=== PATIENT | female | born 1950 | race Caucasian/White ===

== ENCOUNTER 2016-08-23 22:37 | Inpatient (IN) | payer OTHER ==
[~2016-08-23] VITALS: Ht 157.5 cm; Wt 76.2 kg
[2016-08-23 22:39] VITALS: BP 183/83
--- NOTE | 2016-08-23 22:48 | NUR ---
PT TAKEN TO BED 4
[2016-08-23] MEDS ORDERED: ASPIRIN 325 MG TAB PO ONE (23:05)
[2016-08-23] MEDS ORDERED: ENALAPRILAT 2.5 MG/2 ML VIAL IVP ONE (23:05)
[2016-08-23] MEDS ORDERED: NITROGLYCERIN 2% 1 GM PKT TP ONE (23:05)
[2016-08-23] MEDS ORDERED: MORPHINE SULFATE 4 MG/ML SYR IVP ONE (23:05)
--- NOTE | 2016-08-23 23:17 | NUR ---
65Y F BIB FAMILY C/O OF CHEST PAIN X 2 DAYS. SHES BEEN COUGHING FOR PAST FEW DAYS. NO DISTRESS NOTED. BP IS HIGH AND ERMD AWARE.
[2016-08-23] MEDS ORDERED: ZESTRIL20 MG PO (23:25)
[2016-08-23] MEDS ORDERED: GLUCOPHAGE1000 MG PO (23:25)
[2016-08-23] MEDS ORDERED: MOTRIN600 MG PO (23:25)
[2016-08-23] MEDS ORDERED: ZOCOR10 MG PO (23:25)
[2016-08-23] MEDS ORDERED: REGLAN5 MG PO (23:25)
[2016-08-24] VITALS (7 sets, daily range): BP systolic 135–152; BP diastolic 68–85
--- NOTE | 2016-08-24 00:21 | NUR ---
Dr. Conklin evaluating patient at bedside.
[2016-08-24] MEDS ORDERED: hePARIN / DEXT 5% PREMIX 250 ML IV SCH ×3 (01:35→03:55)
[2016-08-24] MEDS ORDERED: HEPARIN PER PHARMACY MC PRN ×2 (01:35→02:00)
--- NOTE | 2016-08-24 01:35 | NUR ---
CALLED AND STATED "I WILL NOT ACCEPT PATIENT." ER MD LEWIS AWARE. LICENSED INSURANCE AGENT AWARE.
[2016-08-24] MEDS ORDERED: ONDANSETRON 4 MG/2 ML VIAL IVP PRN (02:00)
[2016-08-24] MEDS ORDERED: MORPHINE SULFATE 2 MG/ML SYR IVP PRN (02:00)
[2016-08-24] MEDS ORDERED: ACETAMINOPHEN 325 MG TAB PO PRN (02:00)
[2016-08-24] MEDS ORDERED: LORazepam 2 MG/ML VIAL IVP PRN (02:00)
--- NOTE | 2016-08-24 02:35 | NUR ---
Patient will be admitted to care of DR SHAH. Admited to ICU . Will go to rOOM #3. Belongings list completed. Report to CAMILA IGLESIAS.
--- NOTE | 2016-08-24 02:40 | NUR ---
RECEIVED PT TRANSFERRED VIA GURNEY FROM ER WITH DX OF C/P. PT IS AAOX4, ABLE TO FOLLOW COMMANDS AND MAKE NEEDS KNOWN. NO S/S OF SOB/DISTRESS NOTED, BREATHING EVEN AND UNLABORED, CLEAR LUNG SOUNDS, SR ON LOCKSTITCH SHOULDER JOINER, C/O CHEST PAIN DECREASED TO 3/10, TOLERABLE. ABD SOFT, ACTIVE BOWEL SOUNDS. IV ON LEFT HAND 20GA AND LEFT FOREARM 20GA, RUNNING HEPARIN DRIP AT 1350 UNITS PER HOUR, PT RECEIVED HEPARIN BOLUS 5000 UNITS AT ER PER REPORT. AFEBRILE, SKIN IS WARM AND DRY TO TOUCH, ABLE TO MOVE ALL EXTREMITIES. EXPLAINED PLAN OF CARE, FALL PRECAUTION, CALL LIGHT WITHIN REACH. WILL CONTINUE TO MONITOR.
[2016-08-24] MEDS ORDERED: PNEUMOCOCCAL VACCINE 23 MCG/0.5 ML VIAL IMVAC SCH (03:20)
--- NOTE | 2016-08-24 03:30 | NUR ---
PT IS RESTING IN BED, DENIES CHEST PAIN AT THIS TIME. VSS. FAMILY MEMBER AT BEDSIDE.
--- NOTE | 2016-08-24 04:15 | NUR ---
PHARMACY [facility] CALLED FOR HEPARIN DRIP PER PROTOCOL FOR PATIENT NON STEMI START HEPARIN DRIP 900 UNITS/H , PT WAS DRIP 1350 UNITS /H TITRATE HEPARIN DOSE PHARMACY TOLD , NOW DRIP 9 ML/H 900 UNITS/H
--- NOTE | 2016-08-24 05:00 | NUR ---
PT IS ASLEEP, NO CHANGE OF CONDITION AT THIS TIME. VSS.
--- NOTE | 2016-08-24 06:30 | NUR ---
PT C/O NAUSEA AND DIZZINESS, EDUCATED AND MEDICATED. FAMILY MEMBER AT BEDSIDE.
--- NOTE | 2016-08-24 07:10 | NUR ---
REPORT GIVEN TO HARRIS YOUNG FOR CONTINUE OF CARE. PT IS ASLEEP, VSS.
[2016-08-24] MEDS ORDERED: METOPROLOL 25 MG TAB PO SCH ×2 (07:30→21:00)
[2016-08-24] MEDS ORDERED: LISINOPRIL 20 MG TAB PO SCH (07:30)
--- NOTE | 2016-08-24 07:36 | NUR ---
IV SITES INTACT AND FLUSHING WELL
--- NOTE | 2016-08-24 07:36 | NUR ---
RECEIVED PT FROM NIGHT NURSE HARRIS JENSEN. PT AAO X4, BREATHING NORMALLY, ON ROOM AIR. LUNG SOUND ARE CLEAR TO ALL LOBES. SR ON THE MONITOR. S1 S2 HEARD, NO S/S OF ANY EDEMA NOTED. HEPARIN DRIP ONGOING AT 900 UNITS/ HOUR, BOWEL SOUNDS ACTIVE TO ALL QUADRANTS, BLADDER NON DISTENDED, ABLE TO MOVE ALL EXTREMITIES. REPOSITIONED FOR HER COMFORT, WILL MONITOR PT CLOSELY.
--- NOTE | 2016-08-24 07:50 | NUR ---
DR. CLARKE CALLED TO MAKE AN ARRANGEMENT [place] [facility] [place]
[2016-08-24] MEDS ORDERED: NACL 0.9% 1,000 ML IV SCH (08:25)
--- NOTE | 2016-08-24 08:55 | NUR ---
CARDIOLOGY WAS NOTIFIED OF SECOND TROPONIN ,WHICH IT IS HIGHER 40.361 NG/ML AND PATIENT IS STILL ON HEPARIN DRIP AT 900 UNIT/HR. ALSO WAS NOTIFIED OF PTT 45.9 SECOND (DRAWN AT 0813HR). PER ; DO NOT GIVE ANY MORE HEPARIN BOLUS,JUST KEEP HEPARIN DRIP RUNNING AT 900 UNIT/HR AND STOP IT PRIOR TO DISCHARGE TO [facility]. NURSE HECTOR WAS INFORMED.
--- NOTE | 2016-08-24 08:55 | NUR ---
ELENA NOTE RECEIVED ORDER FOR TRANSFER TO [facility] FOR ADVANCE LEVEL OF CARE FOR ANGIOGRAM. SPOKE WITH ELENA LIZAMA OF [facility] PH# [phone] TO INFORM HER AND SHE SAID THE AMB AUTH# IS [id number] AND FACILITY AUTH# [id number]. SPOKE WITH PETER OF [facility] [facility] PH# [phone] AND SHE CONFIRMED PATIENT HAS A 3:30PM SCHEDULE FOR ANGIOGRAM TODAY AND THAT PATIENT NEEDS TO BE AT THEIR [facility] AT 12:30PM. SPOKE WITH JAEL OF [facility] PH# [phone] TO SET UP PATIENT TRANSPORT. PATIENT BIZTALK ADMINISTRATOR TIME AT 11:30AM TODAY BY [facility] AMB[facility]ANCE ACLS GOING TO [facility] [facility]. ICU NURSE HECTOR Liang EXT [phone] AWARE.
[2016-08-24] MEDS ORDERED: ATORVASTATIN 20 MG TAB PO SCH (09:00)
[2016-08-24] MEDS ORDERED: NITROGLYCERIN 0.1 MG/HR PATCH TD SCH (09:00)
[2016-08-24] MEDS ORDERED: INFLUENZA VIRUS VACCINE QUAD 0.5 ML SYR IMVAC SCH (09:00)
[2016-08-24] MEDS ORDERED: METOPROLOL SUCCINATE 50 MG TABER PO SCH ×2 (09:00)
--- NOTE | 2016-08-24 09:00 | NUR ---
PT NOTE 813 RECEIVED ORDER FOR PT EVAL; Pt WAS NOT CLEARED FOR PT PER RN DUE TO CARDIAC CONCERN AND STATES THAT [place] BE [place] [facility] [place]
--- NOTE | 2016-08-24 09:03 | NUR ---
PATIENT HAS BEEN SCREENED AND CATEGORIZED MODERATE NUTRITION RISK. PATIENT WILL BE SEEN WITHIN 3-5 DAYS OF ADMISSION. 08/26/16-08/28/[address]
--- NOTE | 2016-08-24 09:25 | NUR ---
DR. SMITH AT BEDSIDE, UPDATED DR WITH PT'S CURRENT STATUS AND LABS
--- NOTE | 2016-08-24 09:26 | NUR ---
PT'S ISAI SNYDER AT BEDSIDE
--- NOTE | 2016-08-24 09:39 | NUR ---
CM NOTE INITIAL REVIEW SENT TO [facility] FAX# [phone] PH# NOVEMBER [phone]
--- NOTE | 2016-08-24 10:32 | NUR ---
CALLED [facility] TO GIVE REPORT, SPOKE WITH RAJENDRA AND STATED THAT NURSES ARE BUSY AT THIS TIME AND WILL CALL US BACK FOR REPORT.
--- NOTE | 2016-08-24 10:45 | NUR ---
REPORT GIVEN TO HARRIS ZIEGLER TO EDITOR TR[employer]RNAL AT [facility] [place]
[2016-08-24] MEDS ORDERED: ZESTRIL20 MG PO (10:48)
--- NOTE | 2016-08-24 11:00 | NUR ---
PT REFUSED TO HAVE PNEUMONIA VACCINATION AT THIS TIME
--- NOTE | 2016-08-24 11:40 | NUR ---
PARAMEDICS AT BEDSIDE, PT DENIES ANY PAIN AT THIS TIME, VSS
--- NOTE | 2016-08-24 11:45 | NUR ---
PT SAFELY TAKEN BY PARAMEDICS, ISAI SNYDER WITH PT, VS STABLE.
[2016-08-24] MEDS ORDERED: SIMVASTATIN 10 MG TAB PO SCH (21:00)
[2016-08-25] MEDS ORDERED: LISINOPRIL 20 MG TAB PO SCH (09:00)
== END 2016-08-24 11:45 | disposition short-term general hospital (02) | DRG 190 ==
LOC: MED 22:37 → MIC 08-24 01:56
PROVIDERS: ADMIT Hospitalist; ATTEND Hospitalist
DX: I21.4 Non-ST elevation (NSTEMI) myocardial infarction (principal); E11.9 Type 2 diabetes mellitus without complications; I10 Essential (primary) hypertension; E78.5 Hyperlipidemia, unspecified

== ENCOUNTER 2021-07-03 00:43 | Observation (INO) | payer OTHER, SELFPAY ==
[~2021-07-03] VITALS: Ht 157.5 cm; Wt 63.5 kg
[~2021-07-03 00:43] MED LIST: LISI-487 PO; METF1000 PO; SIMV10TA1 PO
[2021-07-03 01:30] VITALS: BP 169/73
--- NOTE | 2021-07-03 01:35 | NUR ---
SEEN AND EXAMINED BY UGRPREET
[2021-07-03] MEDS ORDERED: NITROGLYCERIN 2% 1 GM PKT TP ONE (01:40)
[2021-07-03] MEDS ORDERED: MORPHINE SULFATE 4 MG/ML SYR IVP ONE (01:40)
[2021-07-03] MEDS ORDERED: ASPIRIN 325 MG TAB PO ONE (01:40)
--- NOTE | 2021-07-03 01:40 | NUR ---
MEDICATED PER ERMDS ORDER, TOLERATED WELL.
[2021-07-03] MEDS ORDERED: ENOXAPARIN 60 MG/0.6 ML SYR SUBQ ONE (01:50)
[2021-07-03 02:02] LABS: BASOPHILS % (AUTO) 0.5 % (0.0-2.0); EOSINOPHILS # (AUTO) 0.2 K/uL (0-0.4); EOSINOPHILS % (AUTO) 3.4 % (0.0-4.0); HEMATOCRIT 37.8 % (36-48); HEMOGLOBIN 12.7 g/dL (12.0-16.0); LYMPHOCYTES # (AUTO) 2.4 K/uL (2.5-16.5); MEAN CORPUSCULAR HEMOGLOBIN 32 pg (27-31); MEAN CORPUSCULAR HGB CONC 34 g/dL (33-37); MEAN CORPUSCULAR VOLUME 95.5 fL (80-94); MONOCYTES # (AUTO) 0.5 K/uL (0.8-1.0); MONOCYTES % (AUTO) 7.2 % (1.7-9.3); NEUTROPHILS # (AUTO) 3.7 K/uL (1.8-7.7); NEUTROPHILS % (AUTO) 53.9 % (42.2-75.2); PLATELET COUNT (AUTO) 172 K/uL (140-450); RED BLOOD CELL COUNT(AUTO) 3.96 MIL/uL (4.20-5.40); RED CELL DISTRIBUTION WIDTH 13.7 % (11.6-13.7); WHITE BLOOD COUNT (AUTO) 6.8 K/uL (4.8-10.8)
[2021-07-03 02:28] LABS: ALBUMIN 3.7 g/dL (3.4-5.0); CARBON DIOXIDE 28.8 mmol/L (21-32); CREATININE 1.2 mg/dL (0.6-1.3); POTASSIUM 3.8 mmol/L (3.5-5.1); TOTAL BILIRUBIN 0.2 mg/dL (0.0-1.0)
--- NOTE | 2021-07-03 05:00 | NUR ---
all results back and noted by ERMD and for admission
[2021-07-03] MEDS ORDERED: DEXTROSE 50% 50 ML SYR IVP PRN (05:10)
[2021-07-03] MEDS ORDERED: ZOLPIDEM 5 MG TAB PO PRN (05:10)
[2021-07-03] MEDS ORDERED: ONDANSETRON 4 MG/2 ML VIAL IVP PRN (05:10)
[2021-07-03] MEDS ORDERED: ACETAMINOPHEN 325 MG TAB PO PRN (05:10)
[2021-07-03] MEDS ORDERED: LORazepam 2 MG/ML VIAL IVP PRN (05:10)
[2021-07-03] MEDS ORDERED: INSULIN LISPRO SLIDING SCALE 100 UNITS/ML VIAL SUBQ PRN (05:10)
[2021-07-03] MEDS ORDERED: MORPHINE SULFATE 2 MG/ML SYR IVP PRN (05:10)
[2021-07-03] MEDS ORDERED: NITROGLYCERIN 0.4 MG TAB SL PRN (05:10)
[2021-07-03] MEDS ORDERED: HYDROcodone/APAP 5/325 MG 1 TAB TAB PO PRN (05:10)
--- NOTE | 2021-07-03 07:54 | NUR ---
BLOOD SUGAR 87 AT THIS TIME.
[2021-07-03] MEDS: BLOOD GLUCOSE MONITORING 1 DEV DEV FS SCH ×2 (07:55→12:23)
[2021-07-03] MEDS ORDERED: metFORMIN 500 MG TAB PO SCH (08:00)
[2021-07-03] MEDS ORDERED: lisinopriL 20 MG TAB PO SCH (09:00)
[2021-07-03] MEDS ORDERED: ENOXAPARIN 40 MG/0.4 ML SYR SUBQ SCH (09:00)
[2021-07-03] MEDS ORDERED: DOCUSATE SODIUM 100 MG GELCAP PO SCH (09:00)
--- NOTE | 2021-07-03 09:23 | NUR ---
PATIENT HAS BEEN SCREENED AND CATEGORIZED LOW NUTRITION RISK. PATIENT WILL BE SEEN WITHIN 7 DAYS OF ADMISSION. 07/09/[address]
[2021-07-03 10:29] LABS: CREATINE KINASE MB 0.6 ng/mL (0-3.6)
--- NOTE | 2021-07-03 13:45 | NUR ---
Assumed care of pt at this time. Pt moved to bed 13.
[2021-07-03] MEDS ORDERED: CLOP75TA26 PO (14:37)
[2021-07-03] MEDS ORDERED: ASPI-1822 PO (14:37)
--- NOTE | 2021-07-03 14:44 | NUR ---
Pt is asleep and resting comfortably in bed. VSS. Snack was offered and assisted to ambulate to the restroom. All safety measures in place.
--- NOTE | 2021-07-03 15:42 | NUR ---
Paged Dr Ruffin at this time for D/C orders.
--- NOTE | 2021-07-03 15:43 | NUR ---
PT MOVED FROM BED 13 TO CHAIR C
[2021-07-03 15:53] VITALS: BP 141/58
[2021-07-03 16:09] VITALS: BP 141/58
--- NOTE | 2021-07-03 16:09 | NUR ---
Patient discharged with v/s stable. Written and verbal after care instructions given and explained. Patient verbalized understanding. Ambulatory with steady gait. All questions addressed prior to discharge. Advised to follow up with PMD.
[2021-07-04] MEDS ORDERED: ASPIRIN 81 MG TAB.CHEW PO SCH (09:00)
== END 2021-07-03 16:09 | disposition home or self-care (01) ==
LOC: MED 00:43 → MTU 05:08
PROVIDERS: ADMIT Student in an Organized Health Care Education/Training Program; ATTEND Student in an Organized Health Care Education/Training Program
DX: R07.2 Precordial pain (principal); Z20.822 Contact with and (suspected) exposure to COVID-19; I10 Essential (primary) hypertension; E11.9 Type 2 diabetes mellitus without complications; I25.10 Atherosclerotic heart disease of native coronary artery without angina pectoris; F17.210 Nicotine dependence, cigarettes, uncomplicated; E78.5 Hyperlipidemia, unspecified; F41.9 Anxiety disorder, unspecified; E03.9 Hypothyroidism, unspecified; Z85.9 Personal history of malignant neoplasm, unspecified; Z90.710 Acquired absence of both cervix and uterus
CPT/HCPCS: 36415; 71045; 80053; 82550; 82553; 84484; 85025; 85379; 87426; 93005; 96372; 96374; 99291; G0378; J1650; J2270